=== PATIENT | male | born 1950 | race Caucasian/White ===

== ENCOUNTER 2020-07-06 14:15 | Emergency (ER) | payer MEDICARE, OTHER ==
[~2020-07-06 14:15] MED LIST: ALLOPURINOL100 MG PO; AMLODIPINE BESYL5 MG PO; CARDURA2 MG PO; CRESTOR5 MG PO; LASIX40 MG PO; TOPROL XL 25MG25 MG PO; ZOLOFT100 MG PO
[2020-07-06 15:58] LABS: BASOPHIL 0.6 % (0-2); EOSINOPHIL 2.2 % (0-7); HCT 26.9 % (42.0-52.0); HGB 8.3 g/dl (13.2-18.0); MCH 30.4 pg (25.0-31.0); MCHC 30.9 g/dL (32.0-36.0); MCV 98.5 fL (78.0-100.0); MONOCYTE 7.6 % (0-12); NEUTROPHIL 78.3 % (41-80); NRBC 0; PLT 285 K/uL (150-400); RBC 2.73 M/uL (4.70-6.00); RDW 14.7 % (11.5-14.0); WBC 9.3 K/uL (4.0-10.5)
[2020-07-06 15:59] LABS: ALBUMIN 2.7 g/dL (3.4-5.0); BILIRUBIN - TOTAL 0.8 mg/dL (0.2-1.0); BUN/CREAT RATIO (CALC) 6.1 RATIO; CREATININE 6.84 mg/dL (0.67-1.17); GLOBULIN (CALCULATION) 3.9 g/dL; POTASSIUM 4.3 mmol/L (3.5-5.1); TOTAL PROTEIN 6.6 g/dL (6.4-8.2)
[2020-07-06 16:08] LABS: PRO-BNP 4039 pg/mL (<125)
== END 2020-07-06 18:07 | disposition home or self-care (01) ==
LOC: FER 14:15
PROVIDERS: Emergency Medicine
DX: J81.1 Chronic pulmonary edema (principal); I12.0 Hypertensive chronic kidney disease with stage 5 chronic kidney disease or end stage renal disease; N18.6 End stage renal disease; Z99.2 Dependence on renal dialysis; Z79.899 Other long term (current) drug therapy; Z79.82 Long term (current) use of aspirin; Z87.19 Personal history of other diseases of the digestive system
CPT/HCPCS: 36415; 36600; 71045; 80053; 82803; 83880; 84484; 85025; 93005

== ENCOUNTER 2020-09-24 08:55 | Day surgery (SDCO) | payer MEDICARE, OTHER ==
[~2020-09-24] VITALS: Ht 185.4 cm; Wt 70.0 kg
[2020-09-24 09:21] LABS: BASOPHIL 0.1 % (0-2); EOSINOPHIL 0.3 % (0-7); HCT 30.1 % (42.0-52.0); HGB 9.6 g/dl (13.2-18.0); LYMPHOCYTE 4.9 % (15-48); MCH 31.7 pg (25.0-31.0); MCHC 31.9 g/dL (32.0-36.0); MCV 99.3 fL (78.0-100.0); MONOCYTE 5.1 % (0-12); MPV 10.4 fL (6.0-9.5); NEUTROPHIL 88.3 % (41-80); NRBC 0; PLT 138 K/uL (150-400); RBC 3.03 M/uL (4.70-6.00); WBC 14.4 K/uL (4.0-10.5)
[2020-09-24 10:34] LABS: ALBUMIN 2.2 g/dL (3.4-5.0); BILIRUBIN - TOTAL 0.3 mg/dL (0.2-1.0); CREATININE 7.81 mg/dL (0.67-1.17); GLOBULIN (CALCULATION) 3.7 g/dL; MAGNESIUM 2.7 mg/dL (1.8-2.4); POTASSIUM 5.6 mmol/L (3.5-5.1); TOTAL PROTEIN 5.9 g/dL (6.4-8.2)
[2020-09-24] MEDS ORDERED: SYNTHROID112 MCG PO (12:35)
[2020-09-24] MEDS ORDERED: METOPROLOL SUCC50 MG PO (12:35)
[2020-09-24] MEDS ORDERED: ALLOPURINOL100 MG PO (12:37)
[2020-09-24] MEDS ORDERED: RENA-VITE RX T1 EACH PO (12:37)
[2020-09-24] MEDS ORDERED: NAMENDA 10MG TA10 MG PO (12:38)
[2020-09-24] MEDS ORDERED: XANAX0.5 MG PO (12:38)
[2020-09-24] MEDS ORDERED: PROTONIX 40MG T40 MG PO ×2 (12:39→13:26)
[2020-09-24] MEDS ORDERED: ZOLOFT100 MG PO (12:39)
[2020-09-24] MEDS ORDERED: DEXAMETHASONE 4M4 MG PO (13:25)
[2020-09-24] MEDS ORDERED: OXY-IR 5MG5 MG PO (13:27)
[2020-09-24] MEDS ORDERED: NEPHRO-VITE RX1 EACH PO (13:28)
[2020-09-24] MEDS ORDERED: ASPIRIN EC81 MG PO (13:29)
[2020-09-24] MEDS ORDERED: RENAGEL800 MG PO (13:30)
[2020-09-24] MEDS ORDERED: REQUIP0.25 M1 PO (14:07)
[2020-09-25 04:14] LABS: BASOPHIL 0.2 % (0-2); EOSINOPHIL 0.2 % (0-7); HCT 31.4 % (42.0-52.0); HGB 10.3 g/dl (13.2-18.0); LYMPHOCYTE 3.8 % (15-48); MCH 32.4 pg (25.0-31.0); MCHC 32.8 g/dL (32.0-36.0); MCV 98.7 fL (78.0-100.0); MONOCYTE 4.1 % (0-12); MPV 10.4 fL (6.0-9.5); NRBC 0.2; PLT 163 K/uL (150-400); RBC 3.18 M/uL (4.70-6.00); RDW 17.9 % (11.5-14.0); WBC 13.3 K/uL (4.0-10.5)
[2020-09-25 04:15] LABS: INR 1.21 (0.9-1.2); PROTHROMBIN TIME 14.5 SECONDS (11.4-13.6)
[2020-09-25 04:16] LABS: PTT 38.3 SECONDS (22.2-34.7)
[2020-09-25 04:25] LABS: ALBUMIN 2.3 g/dL (3.4-5.0); BILIRUBIN - TOTAL 0.5 mg/dL (0.2-1.0); CREATININE 3.83 mg/dL (0.67-1.17); GLOBULIN (CALCULATION) 4.8 g/dL; PHOSPHORUS 6.1 mg/dL (2.6-4.7); POTASSIUM 5.1 mmol/L (3.5-5.1); TOTAL PROTEIN 7.1 g/dL (6.4-8.2)
[2020-09-25 04:32] LABS: MAGNESIUM 2.1 mg/dL (1.8-2.4)
== END 2020-09-25 13:34 | disposition home health service (06) ==
LOC: FER 08:55 → FTCU 11:43
PROVIDERS: Emergency Medicine; ADMIT Internal Medicine
DX: I12.0 Hypertensive chronic kidney disease with stage 5 chronic kidney disease or end stage renal disease (principal); J96.01 Acute respiratory failure with hypoxia; N18.6 End stage renal disease; Z99.2 Dependence on renal dialysis; C34.90 Malignant neoplasm of unspecified part of unspecified bronchus or lung; C78.7 Secondary malignant neoplasm of liver and intrahepatic bile duct; C79.51 Secondary malignant neoplasm of bone; C79.31 Secondary malignant neoplasm of brain; N40.0 Benign prostatic hyperplasia without lower urinary tract symptoms; K21.9 Gastro-esophageal reflux disease without esophagitis; D72.829 Elevated white blood cell count, unspecified; D69.6 Thrombocytopenia, unspecified; M19.90 Unspecified osteoarthritis, unspecified site; Z20.822 Contact with and (suspected) exposure to COVID-19; Z99.81 Dependence on supplemental oxygen; Z85.820 Personal history of malignant melanoma of skin
CPT/HCPCS: 36415; 36600; 71045; 80053; 82803; 83605; 83735; 83880; 84100; 84145; 84484; 85025; 85610; 85730; 93005; 94010; 94762; G0257; G0378; J1170; J1642; J7030; J8540; U0002